=== PATIENT | male | born 1965 | race Caucasian/White ===

== ENCOUNTER 2018-09-19 10:07 | Emergency (ER) | payer OTHER, SELFPAY ==
[2018-09-19 10:09] VITALS: BP 139/99; PULSE 117; RESP 12; TEMP 35.9; BMI 34.0
--- NOTE | 2018-09-19 10:31 | ED.VISSUMM ---
- ER Visit Summary Date of Service: 09/19/18 Chief Complaint: Left hand laceration History of Present Illness: The patient is a 53 M past medical history of hypertension. Patient is right-hand dominant. States he was preparing food to use at night for making dinner. He accidentally lacerated the webspace between his left thumb and left index finger with a knife. This occurred within the last hour. He is right-hand dominant. He is unsure of his last tetanus shot and believes it may be greater than 10 years. He denies any other injuries. Physical Examination: Well-appearing middle-age male. Vital signs are stable and afebrile. HEENT exam unremarkable. Lungs clear to auscultation. Heart regular rhythm no murmur. Abdomen soft nontender. Extremities moving all 4. Neurovascular intact. His left thumb and index finger webspace there is a 1 inch laceration that is actively oozing blood. There are no foreign bodies. He has full flexion extension all digits of the left hand. Normal touch sensation of the thumb and index finger. Full range of motion. No foreign body. No bony deformities. Test Results: None Emergency Department Course and Treatment: Tetanus updated. Procedure note: Left hand laceration. Laceration to the webspace between the left index finger and thumb. Locally anesthetized with 1% lidocaine. Cleaned using Shur-Clens, copiously irrigated and explored. Closed using # 5 5-0 Ethilon sutures. Proper hemostasis and wound closures obtained. Patient tolerated procedure well. Treatment Plan: Wound care. Suture removal in 10 days. Return if any signs of infection. Disposition: Discharge Impression: Acute left hand laceration with ER repair of 3 cm Tetanus updated This note was generated with SNTMNT dictation software. It may contain incorrect words, spelling, and punctuation that were not noted in review of the chart prior to signing ED Disposition - Plan for ED Patient: Disposition: Home or Assisted Living Chief Complaint: Laceration Instructions: ED Laceration Hand Referrals: [facility] [Primary Care Provider] - 10 Day for suture removal Additional Instructions: Keep wound clean and dry. Apply antibiotic ointment daily. Return if any signs of infection such as pus, redness, red streaks, fever or swelling. Suture removal in 10 days.
--- NOTE | 2018-09-19 10:34 | ED.DEP ---
ED Disposition - Plan for ED Patient: Disposition: Home or Assisted Living Chief Complaint: Laceration Instructions: ED Laceration Hand [facility] [Primary Care Provider] - 10 Day for suture removal Additional Instructions: Keep wound clean and dry. Apply antibiotic ointment daily. Return if any signs of infection such as pus, redness, red streaks, fever or swelling. Suture removal in 10 days.
[2018-09-19] MEDS: Diphth,Pertuss(Acell),Tet Vac 0.5 ML Vial IM (10:53)
== END 2018-09-19 11:16 | disposition home or self-care (01) ==
PROVIDERS: Emergency Provider Emergency Medicine
DX: S61.412A Laceration without foreign body of left hand, initial encounter (principal); Z23 Encounter for immunization; I10 Essential (primary) hypertension; Z79.899 Other long term (current) drug therapy; W26.0XXA Contact with knife, initial encounter; Y93.G3 Activity, cooking and baking; Y92.000 Kitchen of unspecified non-institutional (private) residence as the place of occurrence of the external cause; Y99.8 Other external cause status
CPT/HCPCS: 12002; 90471; 90715; 99284

== ENCOUNTER → 2020-11-28 06:43 | Outpatient (CLI) | payer OTHER, SELFPAY ==
--- NOTE | 2020-11-28 15:36 | PFTCOMP ---
COMPLETE PULMONARY FUNCTION TEST INTERPRETATION Brief HPI: Patient is a 55 year old male, currently under the care of Dr. Phipps, who presents to [facility] for complete pulmonary function tests secondary to diagnosis of [dyspnea COPD]. Respiratory therapist reports good effort and reproducible results. Interpretation: Forced expiration spirometry shows [no a mild moderate moderately-severe severe very severe] large airways obstructive ventilatory defect with an FEV1 of 99% predicted. There is no significant bronchodilator response by strict ATS criteria. Spirograms are of good quality and plateau [normally]. The respiratory flow volume loop shows [a normal pattern]. Lung volumes by body plethysmography show [a normal an elevated, a decreased] total lung capacity at 7.48 L, 111% predicted. [All other lung volumes are within normal limits.] Diffusion capacity by carbon monoxide is [normal elevated,decreased] at 85% predicted. The airway resistance is [normal elevated]. [No previous pulmonary function tests were available for review.] Impression: These pulmonary function tests are within normal limits
== END ==
PROVIDERS: Referring Provider Family Medicine; Visit Provider Family Medicine
DX: R06.02 Shortness of breath (principal)
CPT/HCPCS: 94060; 94726; 94729

== ENCOUNTER → 2020-12-09 11:24 | Outpatient (CLI) | payer OTHER, SELFPAY ==
--- NOTE | 2020-12-09 16:39 | STRESSREP ---
Stress Test Report Exercise stress test. 55-year-old male with a history of chest pain. Resting KG demonstrates normal sinus rhythm with a rate of 60 bpm normal intervals are noted resting blood pressure is 1 and 34/90 4 mmHg. The patient exercised according to the regular Rufus protocol for a total duration of 9 minutes. Patient completed stage III of the Rufus protocol the maximum heart rate attained was 169 bpm which was 102% of max impacted heart rate the maximum workload was 10.1 metabolic equivalents. At rest there were no ST or T wave changes noted to suggest ischemia and at peak exercise upsloping ST changes were noted which did not meet the criteria for ischemia. No clinical angina was noted the test was terminated due to dyspnea. The peak blood pressure was 174/90 mmHg. Rate-pressure product was 28,700. Conclusion: Exercise stress test with no EKG criteria for ischemia at a high workload. No clinical angina noted. No arrhythmias noted.
== END ==
PROVIDERS: Referring Provider Family Medicine; Visit Provider Family Medicine
DX: R06.02 Shortness of breath (principal)
CPT/HCPCS: 93017

== ENCOUNTER → 2021-01-17 10:33 | Outpatient (CLI) | payer OTHER, SELFPAY ==
[2020-12-11 16:08] VITALS: BMI 33.0
--- NOTE | 2021-01-17 10:38 | ECHOCS_ITS ---
Reason For Study: Dyspnea/SOB Procedure This was a 2D Doppler, Color Flow transthoracic echocardiogram. The study was technically difficult. Contrast injection was performed. Exam performed in department. Left Ventricle Normal LV size. Left ventricular systolic function is normal. The estimated ejection fraction is 65 %. Stage 1 diastolic dysfunction. No regional wall motion abnormalities noted. Right Ventricle Normal RV size. Normal systolic function. Atria Normal left atrium. Normal right atrium. Mitral Valve Normal mitral valve. Tricuspid Valve Normal tricuspid valve. Aortic Valve Trisinus/trileaflet aortic valve. Pulmonic Valve Normal pulmonic valve. Great Vessels Normal aortic root. The pulmonary artery is normal size. Normal inferior vena cava. Pericardium/Pleural No pericardial effusion. Medication 22 gauge I.V. with prn adaptor inserted into right arm. Diluted definity 3ml given slow IV push to enhance endocardial definition. MMode/2D Measurements & Calculations LVIDd: 4.5 cm IVSd: 1.1 cm LA dimension: 3.8 cm LVIDs: 2.8 cm LVPWd: 1.3 cm RVDd: 3.7 cm FS: 37.0 % LAV(MOD-bp): 61.3 ml LA A4 area: 20.3 cm2 RA A4 area: 14.4 cm2 LAV(MOD-bp) Indexed: 27.9 ml/m2 LAV(MOD-sp2): 58.9 ml LAV(MOD-sp4): 56.5 ml Time Measurements MV dec time: 0.29 sec Doppler Measurements & Calculations MV E max felipe: 80.7 cm/sec Lat Peak E' Felipe: 7.4 cm/sec Med Peak E' Felipe: 7.2 cm/sec MV A max felipe: 123.7 cm/sec E/E' lat: 11.0 E/E' med: 11.2 MV E/A: 0.65 MV V2 max: 120.4 cm/sec MV P1/2t max felipe: 83.8 cm/sec Ao V2 max: 144.1 cm/sec MV max P.8 mmHg MV P1/2t: 135.8 msec Ao max P.3 mmHg MV V2 mean: 57.8 cm/sec MV dec slope: 180.7 cm/sec2 MV mean P.6 mmHg MV V2 VTI: 34.7 cm MVA(P1/2t): 1.6 cm2 LV V1 max: 107.3 cm/sec PA V2 max: 105.9 cm/sec LV V1 max P.6 mmHg ECHO/Echo Complete W/ Contrast Interpretation Summary Normal LV size. Left ventricular systolic function is normal. The estimated ejection fraction is 65 %. Stage 1 diastolic dysfunction. Structurally normal valves. Contrast injection was performed. Ordering Physician: Troy Donohue Referring Physician: Michael Phipps Performed By: Guicho Law RCS
--- NOTE | 2021-01-17 11:22 | CT_ITS ---
STUDY: CARDIAC CALCIUM SCORING - CT CHEST REASON FOR EXAM: Male, 55 years old. CALCIUM SCORING RADIATION DOSAGE (If Supplied By Facility): CTDIvol = ( 12.19 ) mGy, DLP = ( 195.04 ) mGycm TECHNIQUE: Axial non-enhanced images were acquired through the heart for the sole purpose of measuring coronary artery calcium. Individualized dose optimization techniques were used for this CT. COMPARISON: None. FINDINGS: Visualized surrounding anatomy: Normal. Left Main Coronary Artery: 0 Left Anterior Descending Artery: 0 Left Circumflex Artery: 0 Right Coronary Artery: 0 Other: 0 Total Calcium Score: 0 CT/Limited Chest CT w/CCTA IMPRESSION: A Calcium Score of 0 places the patient in the approximate 0 percentile, based on the MEDEL data calculator. Please go to: [email or web address]-[facility].org/Calcium/input.aspx , for a description of the calculator. Electronically Signed: Katlin Ghotra MD at 8:08 EDT Tel , Service support ,
[2021-01-17 11:27] VITALS: BP 120/90; PULSE 68; RESP 14; O2SAT 98; BMI 32.3
--- NOTE | 2021-01-17 17:11 | CA.SCORE ---
Calcium Scoring Coronary Calcium Scoring: High-resolution Computed Tomographic imaging of the chest was performed on [01/17/2021], with particular attention paid to the coronary arteries. Images from the examination were analyzed for the presence and extent of coronary artery calcification , using coronary calcium quantification software. The patient tolerated the procedure well and there were no complications. The results of the coronary calcification analysis are provided below. Left main score is 0 Left anterior descending artery score 0 Left circumflex artery score 0 Right coronary artery score 0 Total Agatston score 0 Percentile rankings 0. The above is suggestive of no identifiable atherosclerotic plaquing. Full evaluation of cardiac risk should include an assessment of all conventional risk factors and the scores and percentile rankings reported should be evaluated in this context. Calcium Scoring Interpretation: 0 No identifiable atherosclerotic plaque. Very low cardiovascular disease risk. <5% chance of presence coronary artery disease A Negative Examination 1-10 Minimal Plaque burden. Significant coronary artery disease very unlikely. 11-100 Mild plaque burden. Likely mild or minimal coronary atherosclerosis. 101-400 Moderate plaque burden Moderate non-obstructive coronary artery disease highly likely. Over 400 Extensive plaque burden. High likelihood of at least one significant coronary stenosis (>50% diameter)
== END ==
PROVIDERS: PCP Family Medicine; Referring Provider Internal Medicine Cardiovascular Disease; Visit Provider Internal Medicine Cardiovascular Disease
DX: I10 Essential (primary) hypertension (principal); R06.00 Dyspnea, unspecified; R06.02 Shortness of breath
CPT/HCPCS: 75571; 76380; 93306; Q9957; A4216; C8929

== ENCOUNTER → 2021-01-24 09:09 | Outpatient (CLI) | payer OTHER, SELFPAY ==
[2021-01-24 08:24] VITALS: BMI 32.8
[2021-01-24 10:06] LABS: Anion Gap 0 (5-15); BUN 24 mg/dL (7-18); BUN/Creat Ratio 22.4 RATIO (10-20); Calcium,Total 9.2 mg/dL (8.5-10.1); Chloride 109 mmol/L (98-107); Creatinine, Serum 1.07 mg/dL (0.70-1.30); EST Glomerular Filtration Rate 76 mL/min (>60); Est Glom Filt Rate - Afr Amer 92 mL/min (>60); Glucose 92 mg/dL (74-106); Potassium 4.4 mmol/L (3.5-5.1); Sodium Level 140 mmol/L (136-145)
== END ==
PROVIDERS: PCP Family Medicine; Referring Provider Nurse Practitioner Family; Visit Provider Nurse Practitioner Family
DX: I10 Essential (primary) hypertension (principal); R06.00 Dyspnea, unspecified
CPT/HCPCS: 36415; 80048

== ENCOUNTER → 2021-05-05 | Outpatient (CLI) | payer OTHER, SELFPAY ==
[2021-05-05 18:36] LABS: Probe Check PASS; Specimen Processing Control PASS
== END | disposition home or self-care (01) ==
PROVIDERS: PCP Family Medicine; Referring Provider Family Medicine; Visit Provider Family Medicine
DX: U07.1 COVID-19 (principal)
CPT/HCPCS: 87635; U0005; U0003

== ENCOUNTER 2021-05-13 06:43 | Observation (INO) | payer OTHER, SELFPAY ==
[2021-05-13] VITALS (16 sets, daily range): BP systolic 109–129; BP diastolic 73–97; PULSE 76–100; RESP 13–20; TEMP 36.4–37.5; O2SAT 88–97; BMI 32.4; BMI 31.2
--- NOTE | 2021-05-13 06:59 | EKG12_ITS ---
Test Reason : SOB Blood Pressure : / mmHG Vent. Rate : 080 BPM Atrial Rate : 080 BPM P-R Int : 148 ms QRS Dur : 114 ms QT Int : 386 ms P-R-T Axes : 031 -57 031 degrees QTc Int : 445 ms Normal sinus rhythm Low voltage QRS Left anterior fascicular block Abnormal ECG Confirmed by ROBIN CASTREJON, SHANIA ([id number]), central office equipment engineer CHINA NORWOOD ([id number]) on 05/14/2021 9:55:36 AM Referred By: MADDIE Confirmed By:SHANIA KELLY MD
--- NOTE | 2021-05-13 07:00 | ED.VIS.DYS ---
HPI History of Present Illness Chief Complaint: Shortness of Breath Informant: patient Narrative Narrative: 56-year-old male states that last Wednesday he tested positive for COVID-19 here at the hospital. He reports that he was sick for about 3 days before that. He states his shortness of breath has continued and he feels extremely fatigued and dehydrated. He has has not been on any steroids or monoclonal antibody infusion. He does have a history of hypertension. The patient denies any significant sputum production. Not ambulatory pulse ox was 88% on room air. Patient states that he has significant difficulty with ambulating. [facility] Medical History Abdominal pain COVID Elevated lipase Erectile dysfunction Essential hypertension Insomnia Obesity Squamous cell carcinoma Home Medications imiquimod 5 % topical cream packet 1 applic TOPICAL .COMPLEX 12/06/20 [History Last Taken Unknown] meloxicam 15 mg tablet 15 mg PO DAILY 12/06/20 [History Last Taken Unknown] sildenafil 100 mg tablet 100 mg PO DAILY PRN 12/06/20 [History Last Taken Unknown] trazodone 50 mg tablet 50 mg PO QHS PRN 12/06/20 [History Last Taken Unknown] lisinopril 20 mg-hydrochlorothiazide 12.5 mg tablet 2 tab PO DAILY #180 tab 01/24/21 [Rx Last Taken Unknown] albuterol sulfate [Ventolin HFA] 2 puff INHALATION Q4H PRN PRN #1 inhaler 05/13/21 [Rx Last Taken Unknown] aspirin [Aspir-81] 81 mg PO DAILY 05/13/21 [History Last Taken Unknown] dexamethasone 6 mg PO DAILY #7 tab 05/13/21 [Rx Last Taken Unknown] Allergy/AdvReac Type Severity Reaction Status Date / Time No Known Allergies Allergy Verified 01/24/21 08:35 Family History Mother Cancer skin Brother Cancer skin Myocardial infarction, Onset Age: 50 CAD (coronary artery disease) stent Father Myocardial infarction, Onset Age: 61 CAD (coronary artery disease) stent Grandmother No problems noted. Grandfather Myocardial infarction, Onset Age: 60 CAD (coronary artery disease) CABG Surgical History History of cholecystectomy (08/2016) Social History Smoking Status: Never smoker alcohol intake: current alcohol intake frequency: a few times a week substance use type: does not use ROS ROS ED Constitutional Constitutional ED: Reports other Details: Fatigue ; Denies chills or weight loss Eyes Eyes: Denies change in vision or diplopia ENT ENT ED: Denies ear pain, rhinorrhea or sore throat Cardiovascular Cardiovascular: Denies chest pain, orthopnea, palpitations or racing heartbeat Respiratory/Chest Respiratory/Chest: Reports cough, dyspnea and dyspnea on exertion; Denies orthopnea Gastrointestinal Gastrointestinal: Denies abdominal pain, diarrhea, nausea or vomiting Genitourinary Genitourinary ED: Denies dysuria, hematuria or urinary frequency Musculoskeletal Musculoskeletal: Denies arthralgias or myalgias Integumentary Denies abscess or rash Neurologic Neurologic: Denies headache(s) or weakness Psychiatric Psychiatric: Denies anxiety, depression, suicidal ideation or suicidal thoughts Endocrine Endocrinology: Denies polydipsia, polyphagia or polyuria Allergic/Immunologic Allergic/Immunologic ED: Denies mouth swelling, tongue swelling or urticaria EXAM Physical Exam Const Vital Signs: 05/13/21 06:44 05/13/21 06:47 05/13/21 06:48 Temperature 98.5 F 98.5 F Temperature Source Oral Oral Pulse Rate 84 84 Respiratory Rate 18 18 Respiratory Effort Respiratory Pattern Blood Pressure 125/96 H 125/96 H Blood Pressure Mean 105 105 Pulse Ox 88 93 94 Oxygen Delivery Method Room Air Nasal Cannula Nasal Cannula Oxygen Flow Rate (L/min) 3 3 05/13/21 06:49 05/13/21 07:28 05/13/21 08:10 Temperature 97.5 F L Temperature Source Temporal Pulse Rate 80 Respiratory Rate 20 H Respiratory Effort Short of Breath Respiratory Pattern Tachypnea Blood Pressure 117/74 Blood Pressure Mean 88 Pulse Ox 97 94 Oxygen Delivery Method Nasal Cannula Nasal Cannula Nasal Cannula Oxygen Flow Rate (L/min) 3 3 3 Positive well nourished and well developed General Appearance ED: well developed HEENT Reports normocephalic, head/scalp atraumatic and moist mucous membranes Eyes PERRL and EOMs intact bilaterally Neck no lymphadenopathy, supple and no JVD Resp clear to auscultation bilaterally Resp Narrative: Patient is tachypneic at rest. He is satting 92% on 2 L. Cardio regular rate, regular rhythm and no murmurs GI normal to inspection, nondistended, normoactive bowel sounds and non-tender Palpation: soft Back/Spine no CVA tenderness and normal ROM Extremity normal to inspection General Extremety ED: Negative for edema General Extremity: Negative for edema Neuro oriented x3 and CN's II-XII intact bilaterally Sensorium / Orientation: alert Motor Exam: strength 5/5 throughout Psych mental status grossly normal Mood & Affect: Negative for depressed or tearful Skin no rashes or lesions noted and no wounds MDM MDM MDM Narrative Medical decision making narrative: Basic blood work was obtained. This was essentially negative. CTA of the chest was obtained. If this is negative for pulmonary embolism and the patient can ambulate on nasal cannula without desaturation he most likely will be able to be discharged home with albuterol home oxygen and Decadron. If however he does not meet discharge criteria plan will be for admission. Care the patient will be turned over to the oncoming physician. Lab Data Attestation: I reviewed the patient's lab results. Labs: Laboratory Results - last 24 hr 05/13/21 05/13/21 07:09 07:09 WBC 6.9 RBC 5.16 Hgb 14.0 Hct 43.1 MCV 83.5 MCH 27.1 MCHC 32.5 RDW Std Deviation 41.8 RDW Coeff of Darlene 13.6 Plt Count 209 MPV 10.5 Immature Gran % (Auto) 0.400 Neut % (Auto) 67.8 Lymph % (Auto) 23.7 [place] % (Auto) 7.9 Eos % (Auto) 0.1 Baso % (Auto) 0.1 Absolute Neuts (auto) 4.7 Absolute Lymphs (auto) 1.64 Nucleated RBC % 0 Sodium 136 Potassium 3.5 Chloride 104 Carbon Dioxide 25.0 Anion Gap 7 BUN 20 H Creatinine 1.13 Estim Creat Clear Calc 75.37 Est GFR (MDRD) Af Amer 86 Est GFR (MDRD) Non-Af 71 BUN/Creatinine Ratio 17.7 Glucose 101 Calcium 8.1 L Total Bilirubin 0.70 AST 56 H ALT 59 Alkaline Phosphatase 61 Troponin I High Sens 8 Total Protein 7.4 Albumin 2.9 L Globulin 4.5 H Albumin/Globulin Ratio 0.6 L EKG Initial EKG: Attestation: I personally reviewed and interpreted this EKG as follows: Comments: Sinus rhythm with a ventricular rate of 80 bpm. Left anterior fascicular block noted Discharge Plan Triage Chief Complaint: Shortness of Breath ED Provider: Phoenix Campos Dx/Rx/DC Orders Clinical Impression: COVID-19, Acute hypoxemic respiratory failure Instructions: Coronavirus Disease 2019 (COVID-19): Caring for Yourself or Others Prescriptions: New dexamethasone 6 MG tablet 6 mg PO DAILY Qty: 7 RF: 0 albuterol sulfate [Ventolin HFA] 1 INHALER inhaler 2 puff inhalation Q4H PRN PRN (Reason: Wheezing) Qty: 1 RF: 0 No Action trazodone 50 mg tablet 50 mg PO QHS PRN (Reason: Sleep) RF: 0 sildenafil 100 mg tablet 100 mg PO DAILY PRN (Reason: Sexual Activity) RF: 0 meloxicam 15 mg tablet 15 mg PO DAILY RF: 0 imiquimod 5 % cream in packet 1 applic TOPICAL .COMPLEX RF: 0 lisinopril-hydrochlorothiazide 20-12.5 mg tablet 2 tab PO DAILY Qty: 180 RF: 4 aspirin [Aspir-81] 81 mg Tablet,Delayed Release (Dr/Ec) 81 mg PO DAILY RF: 0 Primary Care Provider: Michael Phipps Referrals: Michael Phipps MD [Primary Care Provider] - As Needed
[2021-05-13 07:15] LABS: Absolute Lymphocyte Count 1.64 X10^3/uL (0.83-4.51); Absolute Neutrophil Count 4.7 X10^3/uL (2.0-7.7); Basophil# 0.01 X10^3/uL; Basophil% 0.1 % (0-1); Eosinophil# 0.01 X10^3/uL; Eosinophils% 0.1 % (0-5); Hematocrit 43.1 % (40-54); Lymphocyte # 1.64 X10^3/ul (0.83-4.51); Lymphocyte % 23.7 % (19-41); Mean Corp Hgb Conc 32.5 g/dL (32-36); Mean Corpuscular Hgb 27.1 pg (27.0-32.0); Mean Corpuscular Volume 83.5 fL (80-94); Mean Platelet Vol. 10.5 fl (6.2-12.0); Monocyte# 0.55 X10^3/uL; Monocyte% 7.9 % (0-10); NRBC Flagged by Analyzer 0 % (0-5); Neutrophil # 4.68 X10^3/uL (2.7-7.7); Neutrophil % 67.8 % (47-70); Platelet Count 209 K/mm3 (150-450); RBC Distribution Width CV 13.6 % (11.6-14.6); RBC Distribution Width SD 41.8 fl (35.1-43.9); Red Blood Count 5.16 M/mm3 (4.6-6.2); White Blood Count 6.9 K/mm3 (4.4-11.0)
[2021-05-13 07:31] LABS: ALB/GLOB Ratio 0.6 RATIO (0.9-2.4); AST(SGOT) 56 U/L (15-37); Alanine Aminotransfer ALT/SGPT 59 U/L (16-61); Albumin, Serum 2.9 g/dL (3.2-5.0); Alkaline Phosphatase 61 U/L (45-117); Anion Gap 7 (5-15); BUN 20 mg/dL (7-18); BUN/Creat Ratio 17.7 RATIO (10-20); Calcium,Total 8.1 mg/dL (8.5-10.1); Chloride 104 mmol/L (98-107); Creatinine, Serum 1.13 mg/dL (0.70-1.30); EST Glomerular Filtration Rate 71 mL/min (>60); Est Glom Filt Rate - Afr Amer 86 mL/min (>60); Estimated Creatinine Clearance 75.37 ml/min; Globulin 4.5 g/dL (2.2-4.2); Glucose 101 mg/dL (74-106); Potassium 3.5 mmol/L (3.5-5.1); Protein, Total 7.4 g/dL (6.4-8.2); Sodium Level 136 mmol/L (136-145); Troponin-I HS 8 pg/mL (3.0-78.0)
--- NOTE | 2021-05-13 07:46 | CT_ITS ---
STUDY: CTA CHEST REASON FOR EXAM: Male, 56 years old. covid 19 pulmonary embolism RADIATION DOSAGE (If Supplied By Facility): CTDIvol = ( 13.69 ) mGy, DLP = ( 494.66 ) mGycm TECHNIQUE: The examination was performed with the intravenous administration of IV 100mL [id number]-370. Post-processing of the angiographic images was performed, with multiplanar reformation and 3D reconstruction. Individualized dose optimization techniques were used for this CT. COMPARISON: 01/17/2021 FINDINGS: Normal enhancement of the main pulmonary artery and right and left pulmonary arteries. Normal enhancement of the bilateral peripheral pulmonary arteries. There is no demonstrated pulmonary embolism. Normal thoracic aorta and visualized great vessels. There is no demonstrated aortic dissection. Normal heart and pericardium. Normal mediastinum. Normal hilar regions. Normal visualized trachea and bronchi. The lungs are well expanded. Bilateral peripheral ground glass opacities consistent with subsegmental atelectasis or pneumonitis. Normal pleura. Normal chest wall structures. Normal osseous structures. Status post cholecystectomy. 4.5 cm cyst within the posterior aspect of the medial segment left lobe of the liver. CT/CTA Chest W/WO Contrast IMPRESSION: 1. No CT evidence of pulmonary embolism. 2. Bilateral subsegmental atelectasis or pneumonitis. Commonly reported imaging features of COUMADIN 19 pneumonia are present. Other processes such as influenza pneumonia and organizing pneumonia as can be seen from drug toxicity or connective tissue disease can cause a similar imaging pattern. Electronically Signed: Salbador Steele MD at 8:59 EDT Tel , Service support ,
--- NOTE | 2021-05-13 09:35 | PCM.HP.STD ---
HPI - General General Date of Admission: 05/13/21 Date of Service: 05/13/21 Chief Complaint: Shortness of breath - 2 weeks HPI Narrative BELINDA EDWARDS, is a 56 M who presents with progressive short of breath. Patient stated that his symptoms started on 05/01/21. He was tested positive on 05/05/21. Patient stated that he was at home. He was progressive short of breath. He was having fevers and chills. He decided to come to emergency room. He complains of chest pain, worse with coughing. Vitals in the ED were stable as the patient was saturating 88% on room air, improved to 94% on 2 L of oxygen. Admitting blood work was unremarkable. CTA of the chest was suggestive of bilateral subsegmental atelectasis or pneumonitis. Patient is unvaccinated. [facility] Medical History Abdominal pain COVID Elevated lipase Erectile dysfunction Essential hypertension Insomnia Obesity Squamous cell carcinoma Home Medications meloxicam 15 mg tablet 15 mg PO DAILY 12/06/20 [History Last Taken Unknown] sildenafil 100 mg tablet 100 mg PO DAILY PRN 12/06/20 [History Last Taken Unknown] trazodone 50 mg tablet 50 mg PO QHS PRN 12/06/20 [History Last Taken Unknown] lisinopril 20 mg-hydrochlorothiazide 12.5 mg tablet 2 tab PO DAILY #180 tab 01/24/21 [Rx Last Taken Unknown] albuterol sulfate [Ventolin HFA] 2 puff INHALATION Q4H PRN PRN #1 inhaler 05/13/21 [Rx Last Taken Unknown] aspirin [Aspir-81] 81 mg PO DAILY 05/13/21 [History Last Taken Unknown] dexamethasone 6 mg PO DAILY #7 tab 05/13/21 [Rx Last Taken Unknown] Allergy/AdvReac Type Severity Reaction Status Date / Time No Known Allergies Allergy Verified 01/24/21 08:35 Family History Mother Cancer skin Brother Cancer skin Myocardial infarction, Onset Age: 50 CAD (coronary artery disease) stent Father Myocardial infarction, Onset Age: 61 CAD (coronary artery disease) stent Grandmother No problems noted. Grandfather Myocardial infarction, Onset Age: 60 CAD (coronary artery disease) CABG Surgical History History of cholecystectomy (08/2016) Social History Smoking Status: Never smoker alcohol intake: current alcohol intake frequency: a few times a week substance use type: does not use ROS ROS Narrative Constitutional: Reports: Chills, Fever,Malaise, Weakness, Fatigue. Denies: Anorexia, Night Sweats, Weight Change Eyes: Denies: Blurred vision, Cataracts, Conjunctivae Inflammation, Pain, Redness, Vision Change HEENT: Denies: Difficulty Hearing, Difficulty Swallowing, Head Aches, Hearing Changes, Sinus Congestion, Sinus Drainage Cardiovascular: Denies: Chest Pain, Orthopnea, Palpitations Respiratory: See HPI Gastrointestinal: Denies: Abdominal Pain, Nausea, Vomiting Genitourinary: Denies: Dysuria Musculoskeletal: Denies: Joint Pain, Joint stiffness, Joint swelling, Joint Tenderness Skin: Denies: Rash, Wounds Neurological: Denies: Numbness, Tingling, Focal weakness Vital Signs Vital Signs Vital Signs: 05/13/21 06:44 05/13/21 06:47 05/13/21 06:48 Temperature 98.5 F 98.5 F Temperature Source Oral Oral Pulse Rate 84 84 Respiratory Rate 18 18 Respiratory Effort Respiratory Pattern Blood Pressure 125/96 H 125/96 H Blood Pressure Mean 105 105 Pulse Ox 88 93 94 Oxygen Delivery Method Room Air Nasal Cannula Nasal Cannula Oxygen Flow Rate (L/min) 3 3 05/13/21 06:49 05/13/21 07:28 05/13/21 08:10 Temperature 97.5 F L Temperature Source Temporal Pulse Rate 80 Respiratory Rate 20 H Respiratory Effort Short of Breath Respiratory Pattern Tachypnea Blood Pressure 117/74 Blood Pressure Mean 88 Pulse Ox 97 94 Oxygen Delivery Method Nasal Cannula Nasal Cannula Nasal Cannula Oxygen Flow Rate (L/min) 3 3 3 05/13/21 08:58 Temperature 99.3 F H Temperature Source Axillary Pulse Rate 80 Respiratory Rate 13 Respiratory Effort Respiratory Pattern Blood Pressure 124/97 H Blood Pressure Mean 106 Pulse Ox 96 Oxygen Delivery Method Nasal Cannula Oxygen Flow Rate (L/min) 3 Weight Weight: 102.6 kg Body Mass Index (BMI) 32.4 Physical Exam Narrative Physical exam: General: Alert, Oriented x3, Cooperative, in mild respiratory distress, on 2 L of oxygen HEENT: Atraumatic Oral: Moist Mucosa Neck: Supple Lungs: Clear to auscultation Cardiovascular: HS I+II, regular, no murmurs Abdomen: Bowel Sounds Present, Soft, Non Tender Extremities: No edema Skin: No rashes, No breakdown Neurological: Grossly intact Psych/Mental Status: Appropriate Results Lab / Micro Data Result Diagrams: 05/13/21 07:09 05/13/21 07:09 Labs: Laboratory Results - last 24 hr 05/13/21 07:09: WBC 6.9, RBC 5.16, Hgb 14.0, Hct 43.1, MCV 83.5, MCH 27.1, MCHC 32.5, RDW Std Deviation 41.8, RDW Coeff of Darlene 13.6, Plt Count 209, MPV 10.5, Immature Gran % (Auto) 0.400, Neut % (Auto) 67.8, Lymph % (Auto) 23.7, [place] % (Auto) 7.9, Eos % (Auto) 0.1, Baso % (Auto) 0.1, Absolute Neuts (auto) 4.7, Absolute Lymphs (auto) 1.64, Nucleated RBC % 0 05/13/21 07:09: Sodium 136, Potassium 3.5, Chloride 104, Carbon Dioxide 25.0, Anion Gap 7, BUN 20 H, Creatinine 1.13, Estim Creat Clear Calc 75.37, Est GFR (MDRD) Af Amer 86, Est GFR (MDRD) Non-Af 71, BUN/Creatinine Ratio 17.7, Glucose 101, Calcium 8.1 L, Total Bilirubin 0.70, AST 56 H, ALT 59, Alkaline Phosphatase 61, Troponin I High Sens 8, Total Protein 7.4, Albumin 2.9 L, Globulin 4.5 H, Albumin/Globulin Ratio 0.6 L Radiology Impression Chest CTA 05/13/21 07:46 IMPRESSION: 1. No CT evidence of pulmonary embolism. 2. Bilateral subsegmental atelectasis or pneumonitis. Commonly reported imaging features of COUMADIN 19 pneumonia are present. Other processes such as influenza pneumonia and organizing pneumonia as can be seen from drug toxicity or connective tissue disease can cause a similar imaging pattern. Electronically Signed: Salbador Steele MD at 8:59 EDT Tel , Service support , Assessment & Plan Assessment/Plan (1) Acute hypoxemic respiratory failure: (2) COVID-19: PLAN: 1. Acute hypoxic respiratory failure secondary to acute COVID-19 pneumonitis Patient's symptoms started on 05/01/21; he is more than 10 days into symptoms. His quarantine was supposed to end today CTA of the chest is negative for acute PE We will continue on Decadron, breathing treatments, trial of Lasix 20 mg IV x1 Encourage use of incentive spirometer 2. Hypertension, controlled, continue on home lisinopril, hydrochlorothiazide 3. DVT PPx- Lovenox SC Charges/Coding Visit Charges Inpatient E&M: 97440 Init Hosp L3
--- NOTE | 2021-05-13 10:29 | PCS.PANDOC ---
PANDEMIC DOCUMENTATION INITIATED: Date: 04/28/2021 Time: 190
[2021-05-13 11:21] LABS: BNP,B-Type NATRIURETIC PEPTIDE 20.4 pg/mL (0-100)
[2021-05-13] MEDS: Furosemide 20 MG/2 ML VIAL IV (17:08)
[2021-05-13] MEDS: 0.9% Saline Lock 10 ML Syringe IV (17:09)
[2021-05-13] MEDS: Enoxaparin 30 MG/0.3 ML Syringe SC (21:39)
[2021-05-13] MEDS: Acetaminophen 325 MG Tablet 650 MG PO (21:42)
[2021-05-14] VITALS (11 sets, daily range): BP systolic 114–120; BP diastolic 78–87; PULSE 62–102; RESP 18–20; TEMP 36.2–37; O2SAT 94–97
[2021-05-14 06:18] LABS: Absolute Lymphocyte Count 1.76 X10^3/uL (0.83-4.51); Absolute Neutrophil Count 4.5 X10^3/uL (2.0-7.7); Basophil# 0.02 X10^3/uL; Basophil% 0.3 % (0-1); Eosinophil# 0.04 X10^3/uL; Eosinophils% 0.6 % (0-5); Hematocrit 40.8 % (40-54); Hemoglobin 13.4 g/dL (13.0-16.5); Lymphocyte # 1.76 X10^3/ul (0.83-4.51); Lymphocyte % 25.5 % (19-41); Mean Corp Hgb Conc 32.8 g/dL (32-36); Mean Corpuscular Hgb 27.2 pg (27.0-32.0); Mean Corpuscular Volume 82.8 fL (80-94); Mean Platelet Vol. 10.5 fl (6.2-12.0); Monocyte# 0.58 X10^3/uL; Monocyte% 8.4 % (0-10); NRBC Flagged by Analyzer 0 % (0-5); Neutrophil # 4.46 X10^3/uL (2.7-7.7); Neutrophil % 64.6 % (47-70); POSITIVE MORPHOLOGY YES; Platelet Count 233 K/mm3 (150-450); RBC Distribution Width CV 13.4 % (11.6-14.6); RBC Distribution Width SD 40.5 fl (35.1-43.9); Red Blood Count 4.93 M/mm3 (4.6-6.2); White Blood Count 6.9 K/mm3 (4.4-11.0)
[2021-05-14 06:24] LABS: Differential Indicated SCAN CRITERIA MET
[2021-05-14 06:43] LABS: Anion Gap 7 (5-15); BUN 21 mg/dL (7-18); BUN/Creat Ratio 19.8 RATIO (10-20); Calcium,Total 8.2 mg/dL (8.5-10.1); Chloride 104 mmol/L (98-107); Creatinine, Serum 1.06 mg/dL (0.70-1.30); EST Glomerular Filtration Rate 77 mL/min (>60); Est Glom Filt Rate - Afr Amer 93 mL/min (>60); Estimated Creatinine Clearance 77.81 ml/min; Glucose 95 mg/dL (74-106); Potassium 3.6 mmol/L (3.5-5.1); Sodium Level 138 mmol/L (136-145)
[2021-05-14 06:51] LABS: Atypical Lymphocyte RARE %; Differential Comment SCANNED
[2021-05-14] MEDS: dexAMETHasone 4 MG Tablet 6 MG PO (08:47)
[2021-05-14] MEDS: Enoxaparin 30 MG/0.3 ML Syringe SC (08:48)
[2021-05-14] MEDS: Aspirin E.C. 81 MG Tablet PO (08:48)
--- NOTE | 2021-05-14 10:03 | CASEMGMT ---
ABDIAS KIM assessment: Initial transition planning/care coordination assessment. RN JULIO introduced self and role at [facility], pt voices understanding and consents to assessment. Pt is on 2Lnc in no distress and able to speak in full sentences. Pt is A/Ox4 and answers all questions appropriately. Pt states no concerns with getting groceries/supplies once home. Care providers, pharmacy, and demographics verified. Presentation: SOB, worse w/ coughing, COVID + Admitting dx: SOB, cough, COVID PCP: Michael Phipps Specialists: Pt states no current specialists. Preferred Pharmacy: [facility] [place] Insurance: [employer]na Prescription Benefit: A[employer]na Living Will/HPOA: Pt states does not have LW/HPOA and declines AD info at this time. LNOK: Jnen Altamirano, sister Living Arrangements: PT states lives alone in 2nd story apt and states no concerns at home. Pt states is independent with ADL's. Transportation: Pt states drives self and states no transportation concerns. DME/HHC: Pt states no current DME or need for any DME. Pt states no preference for DME company if qualifies for home oxygen at discharge. Pt states no hx of HHC or SNF. Pt states no concerns with going home at time of discharge. 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 Pt states does not smoke cigarettes or drink ETOH. Pt states no further concerns/needs. CM to follow for home oxygen testing and any further discharge planning/needs. Advised pt to ask for CM if any further questions/concerns/needs arise, voices understanding. Pt Goal: Home Plan: Home, pending home oxygen testing. [place] ABDIAS KIM
[2021-05-14] MEDS: hydroCHLOROthiazide 12.5mg 25 MG PO (11:21)
[2021-05-14] MEDS: Lisinopril 20 MG Tablet 40 MG PO (11:22)
--- NOTE | 2021-05-14 14:36 | PCM.DC ---
Discharge Instructions Diet Discharge Diet: Low fat / Low cholesterol and 2000 mg Sodium Diet Activity Discharge Activity: Return to Normal Activity Follow Up Care Test Results: Test results from this visit will be discussed in further detail at your follow-up appointment, if applicable. Discharge Plan Admission Admit Date/Time: 05/13/21 09:33 Primary Reason for Your Visit: Acute COVID-19 infection Attending Provider: Erna Garg Primary Care Provider: Michael Phipps Instructions Patient Instructions: Coronavirus Disease 2019 (COVID-19): Caring for Yourself or Others Additional Instructions / Restrictions: Continue to use your incentive spirometer. Continue to remain active and eat healthy. Let your doctor know if you develop fever >101.3F or have progressive worsening shortness of breath. Follow-up with your primary care doctor. Complete your Decadron as prescribed. Continue to use your inhaler as needed for shortness of breath. Continue to quarantine for 20 days total from the start of your symptoms. Discharge Orders/Prescriptions Prescriptions: New dexamethasone 6 MG tablet 6 mg PO DAILY Qty: 7 RF: 0 albuterol sulfate [Ventolin HFA] 1 INHALER inhaler 2 puff inhalation Q4H PRN PRN (Reason: Wheezing) Qty: 1 RF: 0 Continued trazodone 50 mg tablet 50 mg PO QHS PRN (Reason: Sleep) RF: 0 sildenafil 100 mg tablet 100 mg PO DAILY PRN (Reason: Sexual Activity) RF: 0 aspirin 81 mg Tablet,Delayed Release (Dr/Ec) 81 mg PO DAILY RF: 0 lisinopril-hydrochlorothiazide 20-12.5 mg tablet 2 tab PO DAILY RF: 0 Discontinued meloxicam 15 mg tablet 15 mg PO DAILY RF: 0 Referrals / Follow Up: Michael Phipps MD [Primary Care Provider] - Within 2 Weeks Disposition Disposition (needs filled in before D/C Order can be placed): Home, Self Care
--- NOTE | 2021-05-14 14:39 | DS.PCM_ITS ---
Providers Date of Admission: 05/13/21 Date of Discharge: 05/14/21 Primary Care Physician: Dr. Michael Phipps MD Reason For Visit: short of breath, cough, last day of quarantine Diagnosis Discharge Diagnosis (1) Acute hypoxemic respiratory failure: Status: Acute Code(s): J96.01 - Acute respiratory failure with hypoxia (2) COVID-19: Status: Acute Code(s): U07.1 - COVID-19 (3) Malnutrition of mild degree: Status: Acute Code(s): E44.1 - Mild protein-calorie malnutrition Medications at Discharge Home Medications sildenafil 100 mg tablet 100 mg PO DAILY PRN 12/06/20 trazodone 50 mg tablet 50 mg PO QHS PRN 12/06/20 albuterol sulfate [Ventolin HFA] 2 puff INHALATION Q4H PRN PRN #1 inhaler 05/13/21 aspirin 81 mg PO DAILY 05/13/21 dexamethasone 6 mg PO DAILY #7 tab 05/13/21 lisinopril-hydrochlorothiazide 2 tab PO DAILY 05/13/21 Hospital Course Operations None Procedures None Summary of Care Provided Minutes Spent on Discharge: 45 Hospital Course: 56-year-old male with past medical history of hypertension comes in for severe short of breath. His symptoms started on 05/01/21. He tested positive on 05/05/21. Patient was managing his symptoms at home. He however was having progressive shortness of breath with fever and chills. He was saturating 88% on room air in the emergency department. This improved 94% on 2 L of oxygen. His admitting blood work was unremarkable. CTA of the chest was suggestive of bilateral subsegmental atelectasis or pneumonitis. Patient was admitted to PCU and managed on oxygen, incentive spirometer, Decadron. He continued to improve. He was off oxygen at discharge. He was ambulated and did not qualify for oxygen. He will follow-up with his primary care doctor after his quarantine. Physical Exam Narrative Physical exam: General: Alert, Oriented x3, Cooperative HEENT: Atraumatic Oral: Moist Mucosa Neck: Supple Lungs: Clear to auscultation Cardiovascular: HS I+II, regular, no murmurs Abdomen: Bowel Sounds Present, Soft, Non Tender Extremities: No edema Skin: No rashes, No breakdown Neurological: Grossly intact Psych/Mental Status: Appropriate Medical Records Data Medical Nutrition Assessment Dietitian: Malnutrition Criteria Met Start: 05/13/21 12:26 Freq: Status: Active Protocol: Document 05/13/21 12:28 [facility] (Rec: 05/13/21 12:28 [facility] [id number]) Nutrition Malnutrition Evidence of Malnutrition Exists Yes Malnutrition (severe): Acute Illness/Injury Clinical Problem Acute Disease or Injury Related Malnutrition Etiology related to acute illness ( COVID) Signs/Symptoms as evidenced by <50% po intake and 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 Weight / BMI Weight Weight: 94.4 kg Body Mass Index (BMI) 31.2 ABG / Lab / Microbiology Data Result Diagrams: 05/14/21 05:32 05/14/21 05:32 Laboratory: Laboratory Results - last 24 hr 05/14/21 05:32: WBC 6.9, RBC 4.93, Hgb 13.4, Hct 40.8, MCV 82.8, MCH 27.2, MCHC 32.8, RDW Std Deviation 40.5, RDW Coeff of Darlene 13.4, Plt Count 233, MPV 10.5, Immature Gran % (Auto) 0.600, Neut % (Auto) 64.6, Lymph % (Auto) 25.5, Nelson % (Auto) 8.4, Eos % (Auto) 0.6, Baso % (Auto) 0.3, Absolute Neuts (auto) 4.5, Absolute Lymphs (auto) 1.76, Nucleated RBC % 0, Differential Comment SCANNED, Atypical Lymphocytes RARE 05/14/21 05:32: Sodium 138, Potassium 3.6, Chloride 104, Carbon Dioxide 27.0, Anion Gap 7, BUN 21 H, Creatinine 1.06, Estim Creat Clear Calc 77.81, Est GFR (MDRD) Af Amer 93, Est GFR (MDRD) Non-Af 77, BUN/Creatinine Ratio 19.8, Glucose 95, Calcium 8.2 L Microbiology: Microbiology 05/13/21 18:00 Urine, Random Legionella Antigen - Final 05/13/21 18:00 Urine, Random Streptococcus pneumoniae Antigen (M - Final 05/13/21 10:45 Mucosa - Nose Respiratory Panel (PCR) - Final D/C Instructions Discharge Diet: Low fat / Low cholesterol and 2000 mg Sodium Diet Meaningful Use Info Meaningful Use Diagnoses (Choose all that apply): None applicable Discharge Plan Admission Admit Date/Time: 05/13/21 09:33 Primary Reason for Your Visit: Acute COVID-19 infection Attending Provider: Erna Garg Primary Care Provider: Michael Phipps Instructions Patient Instructions: Coronavirus Disease 2019 (COVID-19): Caring for Yourself or Others Additional Instructions / Restrictions: Continue to use your incentive spirometer. Continue to remain active and eat healthy. Let your doctor know if you develop fever >101.3F or have progressive worsening shortness of breath. Follow-up with your primary care doctor. Complete your Decadron as prescribed. Continue to use your inhaler as needed for shortness of breath. Continue to quarantine for [address] art of your symptoms. Discharge Orders/Prescriptions Prescriptions: New dexamethasone 6 MG tablet 6 mg PO DAILY Qty: 7 RF: 0 albuterol sulfate [Ventolin HFA] 1 INHALER inhaler 2 puff inhalation Q4H PRN PRN (Reason: Wheezing) Qty: 1 RF: 0 Continued trazodone 50 mg tablet 50 mg PO QHS PRN (Reason: Sleep) RF: 0 sildenafil 100 mg tablet 100 mg PO DAILY PRN (Reason: Sexual Activity) RF: 0 aspirin 81 mg Tablet,Delayed Release (Dr/Ec) 81 mg PO DAILY RF: 0 lisinopril-hydrochlorothiazide 20-12.5 mg tablet 2 tab PO DAILY RF: 0 Discontinued meloxicam 15 mg tablet 15 mg PO DAILY RF: 0 Referrals / Follow Up: Michael Phipps MD [Primary Care Provider] - Within 2 Weeks Disposition Disposition (needs filled in before D/C Order can be placed): Home, Self Care Charges/Coding Visit Charges Inpatient E&M: 56689 Disch Hosp
[2021-05-14] MEDS: Furosemide 20 MG/2 ML VIAL IV (15:05)
[2021-05-14] MEDS: 0.9% Saline Lock 10 ML Syringe IV (15:05)
--- NOTE | 2021-05-14 15:18 | CASEMGMT ---
Per Marifer CALERO, pt does no qualify for home oxygen at this time. Pt declined therapy and states is independent. Pt states no further questions/concerns/needs. Alan CALERO CM
--- NOTE | 2021-05-14 15:56 | CASEMGMT ---
Per Marifer RN, pt does not qualify for home oxygen at this time and states sat was 94% walking on room air. Pt declined therapy and states is independent. Pt states no further questions/concerns/needs. Alan CALERO CM
--- NOTE | 2021-05-15 16:33 | CASEMGMT ---
ABDIAS KIM Discharge Follow-up Phone Call: ANNELISE: Kev Strata:2 Call Date:05/15/21 Discharge Date:05/14/21 Time of Call:1630 Admitting Diagnosis: COVID This ABDIAS KIM spoke with pt via phone for DC follow-up. Pt states he has been doing ok since discharge. States he still is SOB and states he can tell a difference between being on the oxygen and now not being on oxygen. Pt states he has a pulse oximeter and his PO has been 93-94% at rest. He has not checked it with exertion. Noted a frequent nonproductive cough during our conversation. Pt states he has been moving around, using the incentive spirometer and taking his medications as prescribed to keep his lungs opened up. Pt states Dr. Phipps's office contacted him today for a follow-up visit which is now scheduled for 05/26. Pt states he feels his hospital stay helped him to get around the corner and that he has been feeling much better since his stay. Pt denies any further questions regarding his medications or discharge instructions. Kaushik Holland RN CM
== END 2021-05-14 18:12 | disposition home or self-care (01) | DRG 177 ==
LOC: ED 08:40 → PCU 05-14 07:31
PROVIDERS: Admitting Provider Internal Medicine; Emergency Provider Emergency Medicine; PCP Family Medicine; Visit Provider Internal Medicine
DX: U07.1 COVID-19 (principal); E44.1 Mild protein-calorie malnutrition; J96.01 Acute respiratory failure with hypoxia; J12.82 Pneumonia due to coronavirus disease 2019; Z68.32 Body mass index [BMI] 32.0-32.9, adult; I10 Essential (primary) hypertension; Z79.899 Other long term (current) drug therapy; E66.9 Obesity, unspecified; Z79.82 Long term (current) use of aspirin; R06.02 Shortness of breath
CPT/HCPCS: 36415; 71275; 80048; 80053; 83880; 84484; 85025; 87449; 87633; 93005; 96361; 96372; 96374; 96376; 97802; 99218; 99251; 99285; J7040; Q9967; A4216; G0378; G0463; J1940

== ENCOUNTER 2022-02-13 08:18 | Day surgery (SDC) | payer OTHER, SELFPAY ==
[2022-02-13] VITALS (8 sets, daily range): BP systolic 89–131; BP diastolic 69–95; PULSE 71–91; RESP 16–106; TEMP 36.2–36.6; O2SAT 97–99; BMI 30.8
[2022-02-13] MEDS: Lactated Ringers 1,000 ML 15 ML IV (08:53)
--- NOTE | 2022-02-13 09:57 | HP.PCM_ITS ---
HPI - General HPI Narrative BELINDA EDWARDS, is a 57 M who presents for screening colonoscopy. Patient reports that he has no abdominal pain or blood in the stool. He denies family history of colon cancer. He has never had a colonoscopy in the past. [facility] Medical History Abdominal pain Abrasion Cancer Cardiology follow-up encounter COVID Elevated lipase Erectile dysfunction Essential hypertension History of echocardiogram History of stress test Insomnia Non-smoker Obesity Shortness of breath on exertion Squamous cell carcinoma Wears glasses Wears hearing aid Home Medications sildenafil 100 mg tablet 100 mg PO DAILY PRN 12/06/20 [History Last Taken Unknown] trazodone 50 mg tablet 50 mg PO QHS PRN 12/06/20 [History Last Taken Unknown] lisinopril-hydrochlorothiazide 2 tab PO DAILY 05/13/21 [History Last Taken Unknown] Allergy/AdvReac Type Severity Reaction Status Date / Time No Known Allergies Allergy Verified 02/13/22 08:44 Family History Mother Cancer skin Brother Cancer skin Myocardial infarction, Onset Age: 50 CAD (coronary artery disease) stent Father Myocardial infarction, Onset Age: 61 CAD (coronary artery disease) stent Grandmother No problems noted. Grandfather Myocardial infarction, Onset Age: 60 CAD (coronary artery disease) CABG Surgical History History of cholecystectomy (08/2016) Social History Smoking Status: Never smoker alcohol intake: current alcohol intake frequency: a few times a week substance use type: does not use Past Medical/Surgical History Planned Operation Planned Operative Procedure/s: COLONOSCOPY Previous Hospitalizations/Surgeries HX Hospitalizations: No HX of Surgeries: CHOLEY Any Problems With Anesthesia: No You/Your Family Experience Fever (Hyperthermia) With Anes: No Cholinesterase deficiency: No Cardiovascular Hx Chest Pain within Last 2 months: No Hx of Irregular Heartbeat and/or Afib: No Hx Heart Attack: No Hx Congestive Heart Failure: No Hx Rheumatic Fever: No Hx Hypertension: Yes Hx Internal Defibrillator: No Hx Pacemaker: No Hx Cardiac Catheterization: No Hx Cardiac Surgery/Stents/Etc.: No Hx Stress Test: No Hx Pain in Legs when Walking/Leg Cramps: No Respiratory Chronic Cough: No HX of Shortness of Breath: No Hoarseness: No Hx Chronic Obstructive Pulmonary Disease (COPD): Yes Hx Asthma: No Hx Emphysema: No Hx Sleep Apnea: No CPAP: No BIPAP: No Hx Respiratory Tract Infection/Cold (presently): No Do You Snore Loudly (louder than talking or can be heard): No Do You Often Feel Tired/ Fatigued/ Sleepy Dring Daytime?: No Has Anyone Observed You Stop Breathing During Sleep?: No Result (for STOP score): Negative Hx Smoking: No Smoking Status: Never smoker Gastrointestinal Hx Gastroesophageal Reflux: Yes Controlled With Meds: No Hx Gastrointestinal Disorders: No Hx Gastrointestinal Bleed: No Hx Ulcer: No Hx Unplanned Weight Loss of 20#: No HX Unplanned Weight Gain of 20#: No Neurological Hx Seizures: No HX Syncope/Blackout Spells/Unconsciousness: No Hx Transient Ischemic Attacks (TIA): No Hx Multiple Sclerosis: No Hx Parkinson's Disease: No Hx Head/Neck Injury: No Hx Headaches: No Hx Back Injury/Pain: No Does patient have nerve stimulator: No Blood Disorder Hx Deep Vein Thrombosis: No Hx High Cholesterol: No Hx Hepatitis: No Hx Cirrhosis: No Hx Anemia: No Hx Blood Disorders: No Genitourinary Hx Renal Disease: No Hx Dialysis: No Musculoskeletal 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 Grandfather Myocardial infarction, Onset Age: 60 CAD (coronary artery disease) No pertinent history Discharge Is Pt Admitted From a [facility], or a [facility]: No Who Could Help: FRIEND After D/C, Where Do you Plan to Go: Return Home Vital Signs Vital Signs Vital Signs: 02/13/22 08:47 Temperature 97.5 F L Temperature Source Temporal Pulse Rate 74 Respiratory Rate 16 Respiratory Pattern Normal Blood Pressure 131/95 H Blood Pressure Mean 107 Blood Pressure Source Monitor Blood Pressure Position Semi-Fowlers Blood Pressure Location Left Arm Pulse Ox 97 Oxygen Delivery Method Room Air Weight Weight: 215 lb Body Mass Index (BMI) 30.8 Physical Exam Const alert and oriented x3 Resp normal respiratory effort and normal air movement Cardio regular rate and regular rhythm GI soft to palpation, non-tender and non-distended Assessment & Plan Assessment/Plan (1) Encounter for screening for malignant neoplasm of colon: PLAN: I explained endoscopy in detail to the patient. I explained the risks including but not limited to stroke or heart attack with anesthesia, perforation of the GI tract, bleeding, infection. I explained that any of these could necessitate further emergency surgery. The patient understands and all questions were answered sufficiently. The patient wishes to proceed with proced ure. Trent Leigh MD Pager: [facility] [address] [place] [address] [address] [place] [address] Office: Surgery Risks - Colonoscopy Risks Include but are not Limited To: Risks include but are not limited to: Bleeding, perforation requiring further surgery, inability to complete colonoscopy requiring barium enema.
--- NOTE | 2022-02-13 10:35 | OP.COLON_ITS ---
Patient Name: Jarred Emmanuel Procedure Date: 02/13/2022 10:06 AM Date of : 1965 Age: 57 Procedure: Colonoscopy Indications: Screening for colorectal malignant neoplasm Providers: Trent Leigh MD Medicines: Monitored Anesthesia Care Patient Profile: This is a 57 year old male. Refer to note in patient chart for documentation of history and physical. Last Colonoscopy: none. The patient's first colonoscopy is today. Complications: No immediate complications. Procedure: Pre-Anesthesia Assessment: - Prior to the procedure, a History and Physical was performed, and patient medications and allergies were reviewed. The patient's tolerance of previous anesthesia was also reviewed. The risks and benefits of the procedure and the sedation options and risks were discussed with the patient. All questions were answered, and informed consent was obtained. Prior Anticoagulants: The patient has taken no previous anticoagulant or antiplatelet agents. After reviewing the risks and benefits, the patient was deemed in satisfactory condition to undergo the procedure. After I obtained informed consent, the scope was passed under direct vision. Throughout the procedure, the patient's blood pressure, pulse, and oxygen saturations were monitored continuously. The colonoscope was introduced through the anus and advanced to the cecum, identified by appendiceal orifice and ileocecal valve. The colonoscopy was performed without difficulty. The patient tolerated the procedure well. The quality of the bowel preparation was good. Scope In: 10:17:23 AM Scope Withdrawal Time 0 hours 6 minutes 11 seconds Scope Out: 10:30:43 AM Total Procedure Duration Time 0 hours 13 minutes 20 seconds Findings: The entire examined colon appeared normal on direct and retroflexion views. Impression: - The entire examined colon is normal on direct and retroflexion views. - No specimens collected. Recommendation: - Discharge patient to home. - Resume previous diet. - Continue present medications. - Repeat colonoscopy in 10 years for screening purposes. Procedure Code(s): --- Professional --- 44484, Colonoscopy, flexible; diagnostic, including collection of specimen(s) by brushing or washing, when performed (separate procedure) Diagnosis Code(s): --- Professional --- Z12.11, Encounter for screening for malignant neoplasm of colon CPT copyright 2017 [employer]. All rights reserved. The codes documented in this report are preliminary and upon roll cleaner review may be revised to meet current compliance requirements. Trent Leigh MD 02/13/2022 10:35:10 AM This report has been signed electronically. Number of Addenda: 0 Note Initiated On: 02/13/2022 10:06 AM
--- NOTE | 2022-02-13 10:36 | OP.CCLET_ITS ---
02/13/2022 Michael Phipps [address] [place] [address] Re : Colonoscopy procedure for Jarred Emmanuel Dear Dr. Phipps This procedure was performed on Sunday, February 13, 2022. My impressions and recommendations are as follows: Impressions : - The entire examined colon is normal on direct and retroflexion views. - No specimens collected. Recommendations : - Discharge patient to home. - Resume previous diet. - Continue present medications. - Repeat colonoscopy in 10 years for screening purposes. My findings are described in the full procedure note, which is enclosed. If I can be of further assistance, please feel free to contact me at Doctor phone number(s): , Work: . Sincerely, Trent Leigh MD 02/13/2022 10:35:10 AM This report has been signed electronically.
== END 2022-02-13 11:18 | disposition home or self-care (01) ==
LOC: EN 08:19 → AC 08:20
PROVIDERS: PCP Family Medicine; Referring Provider Family Medicine; Visit Provider Surgery
PROC: 0DJD8ZZ Inspection of Lower Intestinal Tract, Via Natural or Artificial Opening Endoscopic (ICD-10-PCS; CPT 45378; principal; 2022-02-13 09:40)
DX: Z12.11 Encounter for screening for malignant neoplasm of colon (principal); I10 Essential (primary) hypertension; Z79.899 Other long term (current) drug therapy; Z86.16 Personal history of COVID-19
CPT/HCPCS: 45378; J7120

== ENCOUNTER → 2022-11-28 | Outpatient (CLI) | payer OTHER, SELFPAY ==
[2022-11-28 08:13] LABS: ALB/GLOB Ratio 1.1 RATIO (0.9-2.4); AST(SGOT) 20 U/L (15-37); Alanine Aminotransfer ALT/SGPT 42 U/L (16-61); Albumin, Serum 3.9 g/dL (3.2-5.0); Alkaline Phosphatase 82 U/L (45-117); Anion Gap 7 (5-15); BUN 18 mg/dL (7-18); BUN/Creat Ratio 13.8 RATIO (10-20); Calcium,Total 8.9 mg/dL (8.5-10.1); Chloride 105 mmol/L (98-107); Cholesterol 171 mg/dL (200); EST Glomerular Filtration Rate 60 mL/min (>60); Est Glom Filt Rate - Afr Amer 73 mL/min (>60); Globulin 3.7 g/dL (2.2-4.2); Glucose 100 mg/dL (74-106); High Density Lipoprotein 49 mg/dL; PSA,Total - Annual Screen 1.08 ng/mL (0.00-4.00); Potassium 4.3 mmol/L (3.5-5.1); Protein, Total 7.6 g/dL (6.4-8.2); Sodium Level 138 mmol/L (136-145); Triglycerides 73 mg/dL; Very Low Density Lipoprotein 15 mg/dL (5-40)
[2022-11-28 08:14] LABS: Microalbumin,Random Urine 7.7 mg/L (NO RANGE EST.); Microalbumin:Creatinine Ratio 3.4 mg/g CRE (<30 mg/g CRE)
== END | disposition home or self-care (01) ==
LOC: LAB 06:26
PROVIDERS: PCP Family Medicine; Referring Provider Family Medicine; Visit Provider Family Medicine
DX: Z00.01 Encounter for general adult medical examination with abnormal findings (principal); I10 Essential (primary) hypertension; Z12.5 Encounter for screening for malignant neoplasm of prostate
CPT/HCPCS: 36415; 80053; 80061; 82043; 82570; 84153; G0103

== ENCOUNTER 2023-01-22 12:30 | Outpatient (RCR) | payer OTHER, SELFPAY ==
--- NOTE | 2022-12-25 13:50 | HP.PTEVAL ---
Patient's Visit Information BELINDA EDWARDS is a 57 year old M referred to Physical Therapy by Dr. Michael Phipps MD with a diagnosis of SEVERE PES PLANUS. Date of Evaluation: 12/25/22 Physical Therapist: Gregory Russ PT, Cert MDT, OCS - Visit Plan Duration: 1VISIT Plan: PATIENT TO BE PROVIDED WITH 2SETS OF FABRICATED ORTHOTICS AND ENSURE PROPER FITTING - Subjective This 57 y/o male presents to physical therapy with severe pes planus. Patient has had bilateral foot pain since 2004 with symptoms became worse overtime. Patient has had pain thus used orthotics which has helped . Seen recommended orthotics. Last pair 2 years ago. Patient pain located metatarsals arch . Denies paresthesia/tingling otherwise burn and ache without shoes. Pain increases as day goes . Patient goals to have orthotics to have no pain. SOCIAL: single. VOCATION: [employer] - Objective POSTURE: pes planus. PALPATION: unremarkable. GAIT: reciprocal pattern. NEURO: intact. AROM: dorsiflexion 5 degrees ,plantarflexion 65 degrees ,inversion 40 degrees ,eversion 10 degrees. MMT: 5/5 - Goals Goal 1:: Patient to be provided with fabricated orthotics and ensure proper fitting Goal Time Frame: 1 visist - Rehabilitation Potential Physical Therapy Diagnosis: Patient has arch and metatarsal pain with extended walking and standing thus will benefit from orthotics Rehabilitation Potential: Good - Anticipated Interventions Patient/Client Instruction: Educate patient on: Condition, Plan of Care For the Purpose of:: Other Other: ORTHOTICS Thank you for the opportunity to evaluate your patient. For Medicare and Medicare HMO plans, please review the plan of care and approve it. It will need to be FAXED BACK to us at [phone] for Medicare purposes. For Medicare only, by signing this I certify the plan of care. Please let me know if there are questions or concerns regarding this plan of care. Physician Signature: Date:
--- NOTE | 2023-01-22 14:22 | HP.PTDCSUM ---
It has been my pleasure to treat BELINDA EDWARDS referred by Dr. Michael Phipps MD, with the diagnosis of SEVERE PES PLANUS for a total of 2 visit(s). Discharge Date: 01/22/23 Please see the following information for a summary of their discharge status. Subjective: No new c/'os Objective/Function: Provided orthotics ensure proper technique Goal 1:: Patient to be provided with fabricated orthotics and ensure proper fitting Goal Progress: Goal Met Plan: D/C provide orthotics If there are questions or concerns regarding this patient's physical therapy, please feel free to call me at [phone]. Thank you for the referral of this patient. Sincerely, Gregory Russ, PT, Cert MDT, OCS
== END 2023-01-22 19:00 | disposition home or self-care (01) ==
LOC: PT 12:30
PROVIDERS: PCP Family Medicine; Referring Provider Family Medicine; Visit Provider Family Medicine
DX: M21.40 Flat foot [pes planus] (acquired), unspecified foot (principal)
CPT/HCPCS: 97161; 97760

== ENCOUNTER → 2023-12-17 | Outpatient (CLI) | payer OTHER, SELFPAY ==
[2023-12-17 13:04] LABS: Anion Gap 4 (5-15); BUN 18 mg/dL (7-18); BUN/Creat Ratio 12.5 RATIO (10-20); Calcium,Total 8.8 mg/dL (8.5-10.1); Chloride 107 mmol/L (98-107); Creatinine, Serum 1.44 mg/dL (0.70-1.30); EST Glomerular Filtration Rate 53 mL/min (>60); Est Glom Filt Rate - Afr Amer 65 mL/min (>60); Glucose 93 mg/dL (74-106); PSA,Total - Annual Screen 1.07 ng/mL (0.00-4.00); Potassium 4.3 mmol/L (3.5-5.1); Sodium Level 139 mmol/L (136-145)
== END | disposition home or self-care (01) ==
LOC: MFPLAB 09:57
PROVIDERS: PCP Family Medicine; Visit Provider Family Medicine
DX: Z12.5 Encounter for screening for malignant neoplasm of prostate (principal); I10 Essential (primary) hypertension
CPT/HCPCS: 36415; 80048; 84153; G0103

== ENCOUNTER → 2024-02-03 | Outpatient (CLI) | payer OTHER, SELFPAY ==
[2024-02-03 16:07] LABS: Anion Gap 6 (5-15); BUN 19 mg/dL (7-18); BUN/Creat Ratio 16.5 RATIO (10-20); Calcium,Total 9.7 mg/dL (8.5-10.1); Chloride 107 mmol/L (98-107); Creatinine, Serum 1.15 mg/dL (0.70-1.30); EST Glomerular Filtration Rate 69 mL/min (>60); Est Glom Filt Rate - Afr Amer 84 mL/min (>60); Glucose 91 mg/dL (74-106); Potassium 4.2 mmol/L (3.5-5.1); Sodium Level 138 mmol/L (136-145)
[2024-02-03 17:12] LABS: Microalbumin,Random Urine < 5.0 mg/L (NO RANGE EST.)
== END | disposition home or self-care (01) ==
PROVIDERS: PCP Family Medicine; Visit Provider Family Medicine
DX: I10 Essential (primary) hypertension (principal)
CPT/HCPCS: 36415; 80048; 82043; 82570

== ENCOUNTER → 2024-06-19 | Outpatient (CLI) | payer OTHER, SELFPAY ==
[2024-06-19 11:48] LABS: Anion Gap 8 (5-15); BUN 12 mg/dL (7-18); BUN/Creat Ratio 10.5 RATIO (10-20); Calcium,Total 9.5 mg/dL (8.5-10.1); Chloride 106 mmol/L (98-107); Creatinine, Serum 1.14 mg/dL (0.70-1.30); EST Glomerular Filtration Rate 70 mL/min (>60); Est Glom Filt Rate - Afr Amer 85 mL/min (>60); Glucose 101 mg/dL (74-106); Potassium 3.8 mmol/L (3.5-5.1); Sodium Level 138 mmol/L (136-145)
== END | disposition home or self-care (01) ==
PROVIDERS: PCP Family Medicine; Referring Provider Family Medicine; Visit Provider Family Medicine
DX: I10 Essential (primary) hypertension (principal)
CPT/HCPCS: 36415; 80048

== ENCOUNTER → 2025-06-29 | Outpatient (CLI) | payer OTHER, SELFPAY ==
[2025-06-29 13:16] LABS: AST(SGOT) 27 U/L (<=37); Alanine Aminotransfer ALT/SGPT 32 U/L (<=46); Albumin, Serum 4.2 g/dL (3.4-4.8); Alkaline Phosphatase 75 U/L (40-129); Anion Gap 10 (5-15); BUN 16 mg/dL (4-19); BUN/Creat Ratio 15.9 RATIO (10-20); Calcium,Total 9.4 mg/dL (7.6-11.0); Carbon Dioxide 24.5 mmol/L (21.0-32.0); Chloride 105 mmol/L (98-108); Cholesterol 181 mg/dL (<=200); Globulin 2.9 g/dL (2.2-4.2); Glucose 120 mg/dL (70-99); Potassium 4.0 mmol/L (3.3-5.1)
== END | disposition home or self-care (01) ==
LOC: MFPLAB 09:43
PROVIDERS: PCP Family Medicine; Visit Provider Family Medicine
DX: E66.811 Obesity, class 1 (principal); I10 Essential (primary) hypertension
CPT/HCPCS: 36415; 80053; 82465; 83036; 83718